=== PATIENT | female | born 1965 | race Caucasian/White ===

== ENCOUNTER → 2025-04-29 | Outpatient (CLI) | payer BC, SELFPAY ==
[2025-04-29 12:12] LABS: Basophils # (Auto) 0.1 Thou/mm3 (0.0-0.2); Basophils % (Auto) 1 % (0-2.5); Eosinophils # (Auto) 0.1 Thou/mm3 (0.0-0.5); Eosinophils % (Auto) 1 % (0-10); Hematocrit 41.1 % (36.0-46.0); Hemoglobin 14.3 g/dL (12.0-16.0); Immature Granulocytes Auto 0.03 Thou/mm3 (0.00-0.00); Lymphocytes # (Auto) 2.3 Thou/mm3 (1.0-4.8); Lymphocytes % (Auto) 25 % (10-50); Mean Corpuscular HGB Conc 34.8 g/dl (31.0-37.0); Mean Corpuscular Hemoglobin 29.9 pg (25.0-35.0); Mean Corpuscular Volume 86 fL (80-100); Monocytes # (Auto) 0.7 Thou/mm3 (0.0-0.8); Monocytes % (Auto) 7 % (0-12); Neutrophils # (Auto) 5.9 Thou/mm3 (1.8-7.7); Neutrophils % (Auto) 65 % (37-80); Nucleated Red Blood Cell # 0.00 Thou/mm3 (0.00-0.00); Nucleated Red Blood Cell % 0 /100 WBC (0); Platelet Count 265 Thou/mm3 (140-440); RDW Standard Deviation 40.6 fL (36.4-46.3); Red Blood Count 4.78 Miln/mm3 (4.00-5.20); White Blood Count 9.1 Thou/mm3 (3.6-11.0)
[2025-04-29 12:29] LABS: Glucose Estimated Average 114 mg/dL (80-131); Hemoglobin A1C 5.6 % Hgb (4.8-6.0)
[2025-04-29 12:35] LABS: Alanine Aminotransferase 11 U/L (10-49); Albumin, Serum 4.9 gm/dL (3.5-5.0); Albumin/Globulin Ratio 2.9 (1.2-2.2); Alkaline Phosphatase 51 U/L (46-116); Anion Gap 9 (7-16); Aspartate Amino Transferase 17 U/L (0-34); BUN/Creatinine Ratio 13 Ratio (12-20); Bilirubin,Total 0.3 mg/dL (0.3-1.2); Blood Urea Nitrogen 13 mg/dL (9-23); Calcium 9.7 mg/dL (8.3-10.6); Calcium (Corrected) 9.7 mg/dL (8.5-10.1); Carbon Dioxide 28.0 mMol/L (20.0-31.0); Cardiac Risk Estimate 3.4 RATIO (3.7-5.6); Chloride 107 mMol/L (98-107); Cholesterol 207 mg/dL (132-200); Creatinine (Component) 1.0 mg/dL (0.6-1.3); Free T4 (Free Thyroxine) 1.39 ng/dL (0.89-1.76); Globulin 1.7 gm/dL (2.3-3.5); Glucose 95 mg/dL (74-106); HDL Cholesterol 61 mg/dL (40-60); LDL Cholesterol,Calculated 105 mg/dL (0-130); Osmolality,Calculated 286 (275-295); Potassium 4.3 mMol/L (3.4-5.1); Sodium 144 mMol/L (136-145); Thyroid Stimulating Hormone 1.15 uIU/mL (0.55-4.78); Total Protein 6.6 gm/dL (5.7-8.2); Triglycerides 203 mg/dL (30-150); eGFR > 60 See Note
== END | disposition home or self-care (01) ==
PROVIDERS: PCP Internal Medicine; Referring Provider Internal Medicine; Visit Provider Internal Medicine
DX: F41.9 Anxiety disorder, unspecified (principal); E78.5 Hyperlipidemia, unspecified; Z73.3 Stress, not elsewhere classified
CPT/HCPCS: 36415; 80053; 80061; 83036; 84439; 84443; 85025

== ENCOUNTER 2025-05-16 11:26 | Emergency (ER) | payer BC, SELFPAY ==
[2025-05-16 11:26] VITALS: BMI 20.9
[2025-05-16 12:01] VITALS: BP 118/71; PULSE 92; RESP 18; TEMP 36.8; O2SAT 97
--- NOTE | 2025-05-16 12:11 | XR_ITS ---
Examination: CT abdomen and pelvis without contrast. Coronal 3-D reconstructions. Sagittal 2-D reconstructions. Date and time of exam: May 16, 2025, 1220 hours, comparison 02/28/2024 INDICATIONS: Generalized abdominal pain and hematuria today, diagnosis right kidney carcinoma 2011 CTDI: vol (mGy): 4.60 DLP: (mGycm): 230 Technique: Axial images of the abdomen have been obtained, 3 mm slice thickness Intravenous contrast material has not been administered. Low dose protocols were performed. One or more of the following dose reduction techniques were used; automated exposure control, adjustment of the mA and/or KV according to patient size, use of iterative reconstruction technique. Findings: There is pericardial thickening No renal or ureteral calculi Contracted gallbladder No pancreatic or adrenal mass Partial right nephrectomy No renal tumor mass noted on this limited noncontrast study Minimal dilatation right renal pelvis Aorta normal size Normal appendix No bowel obstruction Mild thickening of the urinary bladder wall up to 7 mm Anteverted atrophic uterus, no adnexal mass Advanced disc narrowing L4-L5, L5-S1 IMPRESSION: No renal tumor mass noted on this limited noncontrast study No renal calculi Mild thickening of the urinary bladder wall, differential would include cystitis
--- NOTE | 2025-05-16 12:11 | PD.EDRME ---
Rapid Medical Screening Exam RME Arrival date/time: 05/16/25 11:26 60-year-old female with a history of bladder cancer presents to the emergency room with a chief complaint of blood in the urine x 1 day I have greeted and performed a focused initial assessment of this patient. A comprehensive ED assessment and evaluation of the patient, analysis of all test results, and completion of the medical decision making process will be conducted by additional ED providers. Chief Complaint: Urogenital-Female Time Seen by Provider: 05/16/25 12:01 Vital signs: Vital Signs Temperature 98.3 F 05/16/25 12:01 Pulse Rate 92 05/16/25 12:01 Respiratory Rate 18 05/16/25 12:01 Blood Pressure 118/71 05/16/25 12:01 Pulse Oximetry (%) 97 05/16/25 12:01 Oxygen Delivery Method Room Air 05/16/25 12:01 Vital signs reviewed by provider: Yes Exam: Soft nontender abdomen Clear bilateral lung sounds Clinical Impression: UTI/hematuria/renal calculi
[2025-05-16 12:38] LABS: Collection Type, Urine Clean Catch
[2025-05-16 12:54] LABS: Bacteria,Urine 1+; Bilirubin,Urine Negative (Negative); Blood,Urine 3+ (Negative); Color,Urine Lt-Yellow (Lt Yel-Yel); Glucose, Urine Negative (Negative); Ketones,Urine Negative (Negative); Leukocyte Esterase,Urine Positive (Negative); Nitrite,Urine Negative (Negative); PH,Urine 7.0 (5.0-7.0); Protein,Urine Trace (Neg - Trace); RBC,Urine 83 /hpf (0-3); Specific Gravity,Urine 1.008 (1.001-1.035); Squamous Epithelial Cell,Urine < 1 /hpf (0-5); Urobilinogen,Urine Negative mg/dL (0.0-1.0); WBC,Urine 282 /hpf (0-5)
[2025-05-16 13:02] LABS: Clarity,Urine Hazy (Clear/Hazy)
[2025-05-16 13:18] LABS: Basophils # (Auto) 0.1 Thou/mm3 (0.0-0.2); Basophils % (Auto) 1 % (0-2.5); Eosinophils # (Auto) 0.1 Thou/mm3 (0.0-0.5); Eosinophils % (Auto) 1 % (0-10); Hematocrit 43.0 % (36.0-46.0); Hemoglobin 14.7 g/dL (12.0-16.0); Immature Granulocytes Auto 0.03 Thou/mm3 (0.00-0.00); Lymphocytes # (Auto) 1.9 Thou/mm3 (1.0-4.8); Lymphocytes % (Auto) 20 % (10-50); Mean Corpuscular HGB Conc 34.2 g/dl (31.0-37.0); Mean Corpuscular Hemoglobin 29.7 pg (25.0-35.0); Mean Corpuscular Volume 87 fL (80-100); Monocytes # (Auto) 0.7 Thou/mm3 (0.0-0.8); Monocytes % (Auto) 7 % (0-12); Neutrophils # (Auto) 6.9 Thou/mm3 (1.8-7.7); Neutrophils % (Auto) 72 % (37-80); Nucleated Red Blood Cell # 0.00 Thou/mm3 (0.00-0.00); Nucleated Red Blood Cell % 0 /100 WBC (0); Platelet Count 268 Thou/mm3 (140-440); RDW Standard Deviation 41.1 fL (36.4-46.3); Red Blood Count 4.95 Miln/mm3 (4.00-5.20); White Blood Count 9.6 Thou/mm3 (3.6-11.0)
[2025-05-16 13:47] LABS: Alanine Aminotransferase 12 U/L (10-49); Albumin, Serum 5.1 gm/dL (3.5-5.0); Albumin/Globulin Ratio 2.1 (1.2-2.2); Alkaline Phosphatase 56 U/L (46-116); Anion Gap 8 (7-16); Aspartate Amino Transferase 18 U/L (0-34); BUN/Creatinine Ratio 9 Ratio (12-20); Bilirubin,Total 0.3 mg/dL (0.3-1.2); Blood Urea Nitrogen 8 mg/dL (9-23); Calcium 9.9 mg/dL (8.3-10.6); Calcium (Corrected) 9.9 mg/dL (8.5-10.1); Carbon Dioxide 30.1 mMol/L (20.0-31.0); Chloride 107 mMol/L (98-107); Creatinine (Component) 0.9 mg/dL (0.6-1.3); Estimated Creatinine Clearance 56.4 mL/min (>60); Globulin 2.4 gm/dL (2.3-3.5); Glucose 111 mg/dL (74-106); Lipase 47 U/L (12-53); Osmolality,Calculated 288 (275-295); Potassium 3.9 mMol/L (3.4-5.1); Sodium 145 mMol/L (136-145); Total Protein 7.5 gm/dL (5.7-8.2); eGFR > 60 See Note
--- NOTE | 2025-05-16 14:30 | PD.EDADULT ---
ED General RME/HPI General Chief complaint: Urogenital-Female Stated complaint: URINATING BLOOD X2 DAYS Time Seen by Provider: 05/16/25 12:01 Arrival date/time: 05/16/25 11:26 CC: Urinary frequency HPI ongoing for the past 24 hours denies typical urinary symptoms including painful urination but noticed a small amount of blood in her urine yesterday. Patient is under high stress after family member has had an extensive hospital stay and the patient has been spending long hours in hospitals with poor exercise poor nutrition and poor p.o. intake. Patient denies fever chills flank pain shortness of breath or difficulty breathing. RME / HPI RME / HPI narrative: 05/16/25 11:26 60-year-old female with a history of bladder cancer presents to the emergency room with a chief complaint of blood in the urine x 1 day I have greeted and performed a focused initial assessment of this patient. A comprehensive ED assessment and evaluation of the patient, analysis of all test results, and completion of the medical decision making process will be conducted by additional ED providers. Exam: Soft nontender abdomen Clear bilateral lung sounds Impression: UTI/hematuria/renal calculi Related Data Home Medications ?Medication ?Instructions ?Recorded ?Confirmed nitrofurantoin 100 mg PO BID 01/08/20 01/08/20 monohydrate/macrocrystals 100 mg capsule (Macrobid) Previous Rx's ?Medication ?Instructions ?Recorded ciprofloxacin HCl 500 mg tablet 500 mg PO BID #14 tabs 05/16/25 (Cipro) Allergies Allergy/AdvReac Type Severity Reaction Status Date / Time hydrocodone Allergy Mild GI UPSET Verified 05/16/25 11:28 NSAIDS (Non-Steroidal Allergy Mild DUE TO Verified 05/16/25 11:28 Anti-Inflamma SENSITIVE KIDNEYS cefazolin Allergy Unknown NOT Verified 05/16/25 11:28 RECOMMENDED R/T KIDNEY PROB Penicillins Allergy Unknown SWELLING, Verified 05/16/25 11:28 DIFF BREATHING codeine AdvReac Unknown Vomiting Verified 05/16/25 11:28 Past Medical History Past Medical History CARDIAC: Negative Congestive Heart Failure RESPIRATORY: Negative Chronic Obstructive Pulmonary Disease (COPD) GENITOURINARY: Negative Renal Disease ENDOCRINE: Negative Diabetes Mellitus Type 1 or Diabetes Mellitus Type 2 Social History SMOKING STATUS: Light (< 1 pack/day) ED Exam Narrative Physical exam: [General: Not in any acute distress Head normocephalic HEENT: Within acceptable limits Neck is supple nontender Chest equal chest rise nontender to palpation Respiratory: Clear to auscultation no wheezes crackles or rubs CV: Rate rhythm is regular no murmurs rubs or clicks Abdomen is soft nontender no masses positive bowel sounds all 4 quadrants Back: No CVA tenderness no spinous process tenderness from cervical spine thoracic and lumbar spine Skin: Intact no petechiae rash induration ulceration or crepitus Extremities: Moving all extremity against resistance cap refill less than 2 seconds neurosensory intact Neuro: Awake alert oriented x3 Glascow coma 15 no focal deficits] Course Quality Measures none Orders Category Date Time Status CT abdomen pelvis wo con Stat Exams 05/16/25 12:11 Completed CBC Stat Lab 05/16/25 12:45 Completed CMP [Comprehensive Metabolic Panel] Stat Lab 05/16/25 12:45 Completed Lipase Stat Lab 05/16/25 12:45 Completed UA [Urinalysis] Stat Lab 05/16/25 12:21 Completed Urine Culture Stat Lab 05/16/25 12:21 Received Vital Signs Vital signs: Vital Signs Temperature 98.3 F 05/16/25 12:01 Pulse Rate 92 05/16/25 12:01 Respiratory Rate 18 05/16/25 12:01 Blood Pressure 118/71 05/16/25 12:01 Pulse Oximetry (%) 97 05/16/25 12:01 Oxygen Delivery Method Room Air 05/16/25 12:01 Discharge Plan Plan Patient Disposition: HOME (Self Care) Prescriptions/Referrals Prescriptions/Med Rec: New ciprofloxacin HCl [Cipro] 500 mg tablet 500 mg PO BID Qty: 14 0RF No Action nitrofurantoin monohyd/m-cryst [Macrobid] 100 mg capsule 100 mg PO BID Rx Instructions: must administer with a meal/food Referrals: Carol Akhtar MD [Primary Care Provider, Family Practice] - In 1 week Problem List Clinical Impression: UTI (urinary tract infection) Patient/Caregiver Discharge Instructions Other Activity Instructions:: Take the medication as prescribed ibuprofen or Tylenol for fever pain, increase your water intake. If there is worsening symptoms next 3 to 4 days in spite of the medications return the emergency room for reevaluation. Education Materials: ED CYSTITIS Female Adult Print Language: Wallisian Stand Alone Forms: Anna Award Info., Patient Portal Info Letter, Work/School Release PA/SYLVIE Supervising Physician JENNIFER Supervising Physician: Kaleb Bladwin ENP MDM Clinical Information Provided by: patient Medical Records reviewed [facility] Meds/Rx considered, not ordered None Labs/Rad/Tests considered, not ordered None Chronic Illness/Social Conditions which may negatively complicate care or outcome(s)-explain: None or not applicable EKG EKG not done Labs Labs: interpreted by ok Lab(s) Interpretation(s): CBC shows no acute leukocytosis anemia thrombocytopenia CMP shows no significant electrolyte imbalances renal impairment transaminitis or T. bili elevation. Urine shows 3+ blood leukocyte esterase positive RBCs 83 with WBCs at 280 21+ bacteria. Nitrite negative. Imaging Imaging Interpretation(s): CT of the abdomen shows thickening gallbladder wall. Medication Administration(s) none Diagnosis Differential Diagnosis ED Complaint MDM: Cystitis UTI pyelonephritis
== END 2025-05-16 15:00 | disposition home or self-care (01) ==
PROVIDERS: Nurse Practitioner Family; Emergency Provider Family Medicine; PCP Family Medicine
DX: N39.0 Urinary tract infection, site not specified (principal); R31.9 Hematuria, unspecified; K82.8 Other specified diseases of gallbladder
CPT/HCPCS: 36415; 74176; 80053; 81001; 83690; 85025; 87077; 87086; 87186; 99283

== ENCOUNTER → 2025-05-30 | Outpatient (CLI) | payer BC, SELFPAY ==
[2025-05-30 14:52] LABS: Collection Type, Urine Clean Catch; Squamous Epithelial Cell,Urine 0 /hpf (0-5); WBC,Urine 0 /hpf (0-5)
[2025-05-30 16:54] LABS: Bilirubin,Urine Negative (Negative); Blood,Urine Negative (Negative); Clarity,Urine Clear (Clear/Hazy); Color,Urine Lt-Yellow (Lt Yel-Yel); Glucose, Urine Negative (Negative); Ketones,Urine Negative (Negative); Leukocyte Esterase,Urine Negative (Negative); Nitrite,Urine Negative (Negative); PH,Urine 6.0 (5.0-7.0); Protein,Urine Negative (Neg - Trace); RBC,Urine < 1 /hpf (0-3); Specific Gravity,Urine 1.007 (1.001-1.035); Urobilinogen,Urine Negative mg/dL (0.0-1.0)
== END | disposition home or self-care (01) ==
LOC: SLDO 14:24
PROVIDERS: PCP Family Medicine; Referring Provider Family Medicine; Visit Provider Family Medicine
DX: N39.0 Urinary tract infection, site not specified (principal)
CPT/HCPCS: 81001; 87086